=== PATIENT | male | born 1950 | race Caucasian/White ===

== ENCOUNTER 2018-06-07 16:03 | Inpatient (IN) | payer MEDICARE, MEDICAID ==
[~2018-06-07] VITALS: Ht 177.8 cm; Wt 69.8 kg
[2018-06-07] MEDS ORDERED: SODIUM CHLORIDE 0.9% 1,000 ML IV ONE (16:32)
[2018-06-07 17:23] LABS: Albumin 2.9 g/dL (3.4-5.0); BUN/Creatinine Ratio 36.8; Potassium 4.1 mmol/L (3.5-5.1)
[2018-06-07 17:24] LABS: INR 0.98 (0.9-1.15); Partial Thromboplastin Time 23.6 sec (23.78-33.04); Prothrombin Time 10.5 sec (9.27-12.13)
[2018-06-07 17:28] LABS: Bilirubin, Total 0.9 mg/dL (0.2-1.0); Hematocrit 39.6 % (41.0-53.0); Hemoglobin 13.8 g/dL (13.5-17.5); Mean Corpuscular Hemoglobin 32.6 pg (28.0-32.0); Mean Corpuscular Hgb Conc. 34.7 g/dL (32.0-36.0); Mean Corpuscular Volume 93.8 fL (80.0-100.0); Platelet Count (auto) 189 10^3/uL (140-450); Red Blood Cells 4.22 10^6/uL (4.5-5.90); Red Cell Distribution Width 14.6 % (11.8-14.3); Total Protein 5.9 g/dL (6.4-8.2); White Blood Cell 17.7 10^3/uL (4.4-10.8)
[2018-06-07 17:36] LABS: Basophils % (manual) 0 (0.0-2.0); Blast Cells 0; Eosinophils % (manual) 0 (0-7); Metamyelocytes % 0; Myelocytes % 0; Promyelocytes % 0; Reactive Lymphocytes 0
[2018-06-07] MEDS ORDERED: FUROSEMIDE 20 MG/2 ML VIAL IV ONE (18:00)
[2018-06-07] MEDS ORDERED: ASPirin 81 mg TAB PO ONE (18:00)
[2018-06-07] MEDS ORDERED: ENOXAPARIN SOD 80 MG/0.8ML SYRINGE SC ONE (18:00)
[2018-06-07 19:02] LABS: Band Neutrophils % (manual) 4; Lymphocytes % (manual) 1 (10.0-50.0); Monocytes % (manual) 5 (0-12)
[2018-06-07] MEDS ORDERED: NITROGLYCERIN 0.4 MG SL TAB SL PRN (19:15)
[2018-06-07] MEDS ORDERED: HYDROcodone-ACET 5/325MG TAB PO PRN (19:15)
[2018-06-07] MEDS ORDERED: MORPHINE SULF INJ 2 MG/ML SYRINGE 1ML IV PRN ×2 (19:15)
[2018-06-07] MEDS ORDERED: cloNIDine HCL 0.1 MG TAB PO PRN (19:15)
[2018-06-07] MEDS ORDERED: DOCUSATE SOD 100 MG CAP PO PRN (19:15)
[2018-06-07] MEDS ORDERED: ACETAMINOPHEN 325 MG TAB PO PRN (19:15)
[2018-06-07] MEDS ORDERED: ONDANSETRON HCL 4 MG/2 ML VIAL IV PRN (19:15)
[2018-06-07 19:16] VITALS: BP 118/49
[2018-06-07 20:51] LABS: Urine Bacteria FEW /hpf (None Seen); Urine Blood Negative /uL (Negative); Urine Hyaline Cast FEW /lpf (0 - 2); Urine Specific Gravity 1.009 (1.001-1.035); Urine WBC <1 /hpf (0 - 3)
[2018-06-07] MEDS: BUDESONIDE (INHALATION) 0.5 MG/2 ML NEB NEB SCH (21:39)
[2018-06-07 22:00] VITALS: BP_SYST 105; BP_DIAS 62; BP_DIAS 70
[2018-06-07] MEDS: SODIUM CHLOR 0.9% PF (SALINE LOCK) 10ML VIAL/SYR IV SCH (22:00)
[2018-06-07] MEDS: FAMOTIDINE 20 MG TAB PO SCH (22:00)
[2018-06-07] MEDS: ATORVASTATIN 20 MG TAB PO SCH (22:00)
[2018-06-08] MEDS: ALBUTEROL SULF 2.5 MG/0.5ML(0.5%) NEB SOLN NEB SCH ×4 (00:32→18:34)
[2018-06-08] MEDS: IPRATROPIUM BROM 0.5 MG/2.5ML INH SOL NEB SCH ×4 (00:32→18:34)
[2018-06-08 05:17] VITALS: BP 115/76
[2018-06-08] MEDS: BUDESONIDE (INHALATION) 0.5 MG/2 ML NEB NEB SCH ×2 (05:46→18:34)
[2018-06-08 05:54] LABS: Hematocrit 38.4 % (41.0-53.0); Mean Corpuscular Hemoglobin 31.8 pg (28.0-32.0); Mean Corpuscular Hgb Conc. 33.8 g/dL (32.0-36.0); Mean Corpuscular Volume 93.8 fL (80.0-100.0); Platelet Count (auto) 171 10^3/uL (140-450); Red Blood Cells 4.09 10^6/uL (4.5-5.90); Red Cell Distribution Width 14.7 % (11.8-14.3)
[2018-06-08] MEDS: SODIUM CHLOR 0.9% PF (SALINE LOCK) 10ML VIAL/SYR IV SCH ×3 (05:56→22:19)
[2018-06-08 06:03] LABS: Basophils % (manual) 0 (0.0-2.0); Blast Cells 0; Eosinophils % (manual) 0 (0-7); Myelocytes % 0; Promyelocytes % 0; Reactive Lymphocytes 0
[2018-06-08 06:04] LABS: Potassium 3.6 mmol/L (3.5-5.1)
[2018-06-08 06:10] LABS: Albumin 2.5 g/dL (3.4-5.0); BUN/Creatinine Ratio 36.7; Bilirubin, Total 0.5 mg/dL (0.2-1.0); Calcium 8.3 mg/dL (8.5-10.1); Total Protein 5.2 g/dL (6.4-8.2)
[2018-06-08 06:56] LABS: Band Neutrophils % (manual) 7; Lymphocytes % (manual) 3 (10.0-50.0); Metamyelocytes % 1; Monocytes % (manual) 6 (0-12)
[2018-06-08 08:00] VITALS: BP 125/78
[2018-06-08] MEDS: Ensure Enlive Strawberry 8oz Bottle PO SCH ×3 (08:00→18:04)
[2018-06-08 08:51] VITALS: BP 125/78
[2018-06-08] MEDS: amLODIPine BESYLATE 5 MG TAB PO SCH (10:39)
[2018-06-08] MEDS: FINASTERIDE 5 MG TAB PO SCH (10:39)
[2018-06-08] MEDS: MULTIPLE VITAMIN TAB PO SCH (10:39)
[2018-06-08] MEDS: predniSONE 20 MG TAB PO SCH (10:40)
[2018-06-08] MEDS: POTASSIUM CHL 10 Meq TABLET PO SCH (10:40)
[2018-06-08] MEDS: FAMOTIDINE 20 MG TAB PO SCH ×2 (10:40→21:48)
[2018-06-08] MEDS: FUROSEMIDE 40 MG TAB PO SCH (10:40)
[2018-06-08] MEDS: ASPirin-EC 81 mg tab PO SCH (10:40)
[2018-06-08] MEDS: ENOXAPARIN SOD 40 MG/0.4 ML SYRINGE SC SCH (10:40)
[2018-06-08 12:46] VITALS: BP 111/65
[2018-06-08] MEDS ORDERED: IOHEXOL 350 MG/ML 100ML IJ ONE (13:49)
[2018-06-08] MEDS ORDERED: LORazepam 2MG/ML-1ML VIAL IV PRN (17:00)
[2018-06-08 17:07] VITALS: BP 111/70
[2018-06-08] MEDS: TAMSULOSIN HYDROCHLORIDE 0.4 MG CAP PO SCH (17:33)
[2018-06-08] MEDS: ATORVASTATIN 20 MG TAB PO SCH (21:48)
[2018-06-08 22:00] VITALS: BP 118/67
[2018-06-09] MEDS: IPRATROPIUM BROM 0.5 MG/2.5ML INH SOL NEB SCH ×4 (00:09→19:22)
[2018-06-09] MEDS: ALBUTEROL SULF 2.5 MG/0.5ML(0.5%) NEB SOLN NEB SCH ×4 (00:09→19:22)
[2018-06-09 05:00] VITALS: BP 98/71
[2018-06-09] MEDS: BUDESONIDE (INHALATION) 0.5 MG/2 ML NEB NEB SCH ×2 (05:31→19:23)
[2018-06-09] MEDS: SODIUM CHLOR 0.9% PF (SALINE LOCK) 10ML VIAL/SYR IV SCH ×3 (06:00→23:22)
[2018-06-09 08:00] VITALS: BP 114/83
[2018-06-09] MEDS: Ensure Enlive Strawberry 8oz Bottle PO SCH ×3 (08:18→18:24)
[2018-06-09 08:36] VITALS: BP 114/83
[2018-06-09] MEDS: POTASSIUM CHL 10 Meq TABLET PO SCH (09:02)
[2018-06-09] MEDS: amLODIPine BESYLATE 5 MG TAB PO SCH (09:04)
[2018-06-09] MEDS: FAMOTIDINE 20 MG TAB PO SCH ×2 (09:05→21:30)
[2018-06-09] MEDS: FINASTERIDE 5 MG TAB PO SCH (09:05)
[2018-06-09] MEDS: MULTIPLE VITAMIN TAB PO SCH (09:05)
[2018-06-09] MEDS: ASPirin-EC 81 mg tab PO SCH (09:05)
[2018-06-09] MEDS: FUROSEMIDE 40 MG TAB PO SCH (09:05)
[2018-06-09] MEDS: predniSONE 20 MG TAB PO SCH (09:06)
[2018-06-09] MEDS: ENOXAPARIN SOD 40 MG/0.4 ML SYRINGE SC SCH (09:06)
[2018-06-09 12:30] VITALS: BP 101/75
[2018-06-09 16:43] VITALS: BP 127/72
[2018-06-09] MEDS: TAMSULOSIN HYDROCHLORIDE 0.4 MG CAP PO SCH (17:20)
[2018-06-09 21:30] VITALS: BP 116/77
[2018-06-09] MEDS: ATORVASTATIN 20 MG TAB PO SCH (21:30)
[2018-06-10] VITALS (8 sets, daily range): BP systolic 91–122; BP diastolic 64–78
[2018-06-10] MEDS: IPRATROPIUM BROM 0.5 MG/2.5ML INH SOL NEB SCH ×4 (00:11→18:23)
[2018-06-10] MEDS: ALBUTEROL SULF 2.5 MG/0.5ML(0.5%) NEB SOLN NEB SCH ×4 (00:11→18:23)
[2018-06-10] MEDS: SODIUM CHLOR 0.9% PF (SALINE LOCK) 10ML VIAL/SYR IV SCH ×3 (06:37→21:26)
[2018-06-10] MEDS: BUDESONIDE (INHALATION) 0.5 MG/2 ML NEB NEB SCH ×2 (07:00→18:27)
[2018-06-10] MEDS: Ensure Enlive Strawberry 8oz Bottle PO SCH ×3 (08:00→17:40)
[2018-06-10] MEDS: amLODIPine BESYLATE 5 MG TAB PO SCH (09:10)
[2018-06-10] MEDS: ASPirin-EC 81 mg tab PO SCH (09:10)
[2018-06-10] MEDS: MULTIPLE VITAMIN TAB PO SCH (09:11)
[2018-06-10] MEDS: predniSONE 20 MG TAB PO SCH (09:11)
[2018-06-10] MEDS: POTASSIUM CHL 10 Meq TABLET PO SCH (09:11)
[2018-06-10] MEDS: FINASTERIDE 5 MG TAB PO SCH (09:11)
[2018-06-10] MEDS: FUROSEMIDE 40 MG TAB PO SCH (09:11)
[2018-06-10] MEDS: ENOXAPARIN SOD 40 MG/0.4 ML SYRINGE SC SCH (09:17)
[2018-06-10] MEDS: FAMOTIDINE 20 MG TAB PO SCH ×2 (09:17→21:24)
[2018-06-10] MEDS ORDERED: LIDOCAINE 2%HCL (LOCAL ANESTH.) INJ 10ml MDV ONE (12:49)
[2018-06-10] MEDS ORDERED: IOHEXOL 350 MG/ML 100ML IJ ONE (12:49)
[2018-06-10] MEDS ORDERED: ANGIOMAX 250 MG VIAL IV ONE (14:01)
[2018-06-10] MEDS ORDERED: MIDAZOLAM HCL 1MG/1ML-2 ML VIAL ONE (14:01)
[2018-06-10] MEDS ORDERED: fentaNYL CITRATE 100 MCG/2 ML VL ONE (14:01)
[2018-06-10] MEDS ORDERED: SODIUM CHL 0.9% 0 ML ONE (14:02)
[2018-06-10] MEDS: TAMSULOSIN HYDROCHLORIDE 0.4 MG CAP PO SCH (17:40)
[2018-06-10] MEDS: ATORVASTATIN 20 MG TAB PO SCH (21:25)
[2018-06-11] VITALS (8 sets, daily range): BP systolic 87–112; BP diastolic 59–76
[2018-06-11] MEDS: ALBUTEROL SULF 2.5 MG/0.5ML(0.5%) NEB SOLN NEB SCH ×4 (01:09→19:57)
[2018-06-11] MEDS: IPRATROPIUM BROM 0.5 MG/2.5ML INH SOL NEB SCH ×4 (01:09→19:57)
[2018-06-11] MEDS: SODIUM CHLOR 0.9% PF (SALINE LOCK) 10ML VIAL/SYR IV SCH ×3 (06:53→23:11)
[2018-06-11] MEDS: BUDESONIDE (INHALATION) 0.5 MG/2 ML NEB NEB SCH ×2 (07:00→19:57)
[2018-06-11] MEDS: Ensure Enlive Strawberry 8oz Bottle PO SCH ×3 (08:00→17:44)
[2018-06-11] MEDS: FAMOTIDINE 20 MG TAB PO SCH ×2 (09:32→23:11)
[2018-06-11] MEDS: ENOXAPARIN SOD 40 MG/0.4 ML SYRINGE SC SCH (09:32)
[2018-06-11] MEDS: MULTIPLE VITAMIN TAB PO SCH (09:33)
[2018-06-11] MEDS: FUROSEMIDE 40 MG TAB PO SCH (09:33)
[2018-06-11] MEDS: POTASSIUM CHL 10 Meq TABLET PO SCH (09:33)
[2018-06-11] MEDS: FINASTERIDE 5 MG TAB PO SCH (09:33)
[2018-06-11] MEDS: ASPirin-EC 81 mg tab PO SCH (09:33)
[2018-06-11] MEDS: amLODIPine BESYLATE 5 MG TAB PO SCH (09:34)
[2018-06-11] MEDS: predniSONE 20 MG TAB PO SCH (09:34)
[2018-06-11] MEDS: TAMSULOSIN HYDROCHLORIDE 0.4 MG CAP PO SCH (17:44)
[2018-06-11] MEDS: ATORVASTATIN 20 MG TAB PO SCH (22:00)
[2018-06-12] MEDS: IPRATROPIUM BROM 0.5 MG/2.5ML INH SOL NEB SCH ×4 (00:36→18:33)
[2018-06-12] MEDS: ALBUTEROL SULF 2.5 MG/0.5ML(0.5%) NEB SOLN NEB SCH ×4 (00:36→18:33)
[2018-06-12 05:00] VITALS: BP 114/82
[2018-06-12] MEDS: SODIUM CHLOR 0.9% PF (SALINE LOCK) 10ML VIAL/SYR IV SCH ×2 (06:19→14:38)
[2018-06-12] MEDS: BUDESONIDE (INHALATION) 0.5 MG/2 ML NEB NEB SCH ×2 (07:00→18:34)
[2018-06-12 09:00] VITALS: BP 115/74
[2018-06-12] MEDS: Ensure Enlive Strawberry 8oz Bottle PO SCH ×3 (09:02→19:03)
[2018-06-12] MEDS: ENOXAPARIN SOD 40 MG/0.4 ML SYRINGE SC SCH (09:36)
[2018-06-12] MEDS: FINASTERIDE 5 MG TAB PO SCH (09:36)
[2018-06-12] MEDS: ASPirin-EC 81 mg tab PO SCH (09:36)
[2018-06-12] MEDS: POTASSIUM CHL 10 Meq TABLET PO SCH (09:37)
[2018-06-12] MEDS: FAMOTIDINE 20 MG TAB PO SCH (09:37)
[2018-06-12] MEDS: MULTIPLE VITAMIN TAB PO SCH (09:37)
[2018-06-12] MEDS: FUROSEMIDE 40 MG TAB PO SCH (09:37)
[2018-06-12] MEDS: predniSONE 20 MG TAB PO SCH (09:38)
[2018-06-12] MEDS: amLODIPine BESYLATE 5 MG TAB PO SCH (09:38)
[2018-06-12 13:00] VITALS: BP 102/65
[2018-06-12 17:06] VITALS: BP 117/76
[2018-06-12] MEDS: TAMSULOSIN HYDROCHLORIDE 0.4 MG CAP PO SCH (18:00)
== END 2018-06-12 21:20 | disposition home health service (06) | DRG 286 ==
LOC: ER 16:03 → EDBD 16:03 → TELE 16:04 → TELE-EAST 20:40
PROVIDERS: ADMIT Internal Medicine; ATTEND Internal Medicine Pulmonary Disease
PROC: 4A023N8 Measurement of Cardiac Sampling and Pressure, Bilateral, Percutaneous Approach (ICD-10-PCS; principal; 2018-06-10)
PROC: B2151ZZ Fluoroscopy of Left Heart using Low Osmolar Contrast (ICD-10-PCS; 2018-06-10)
PROC: B2111ZZ Fluoroscopy of Multiple Coronary Arteries using Low Osmolar Contrast (ICD-10-PCS; 2018-06-10)
DX: I13.0 Hypertensive heart and chronic kidney disease with heart failure and stage 1 through stage 4 chronic kidney disease, or unspecified chronic kidney disease (principal); I50.43 Acute on chronic combined systolic (congestive) and diastolic (congestive) heart failure; G93.40 Encephalopathy, unspecified; J96.20 Acute and chronic respiratory failure, unspecified whether with hypoxia or hypercapnia; E44.0 Moderate protein-calorie malnutrition; R55 Syncope and collapse; S09.90XA Unspecified injury of head, initial encounter; J44.9 Chronic obstructive pulmonary disease, unspecified; E83.51 Hypocalcemia; I27.20 Pulmonary hypertension, unspecified; N18.2 Chronic kidney disease, stage 2 (mild); D63.8 Anemia in other chronic diseases classified elsewhere; I67.2 Cerebral atherosclerosis; Y93.01 Activity, walking, marching and hiking; F15.10 Other stimulant abuse, uncomplicated; N40.0 Benign prostatic hyperplasia without lower urinary tract symptoms; S01.21XA Laceration without foreign body of nose, initial encounter; W18.39XA Other fall on same level, initial encounter; I07.1 Rheumatic tricuspid insufficiency; Z80.0 Family history of malignant neoplasm of digestive organs; Z80.42 Family history of malignant neoplasm of prostate; Z87.891 Personal history of nicotine dependence; Z86.19 Personal history of other infectious and parasitic diseases; Y92.89 Other specified places as the place of occurrence of the external cause; Y99.8 Other external cause status
CPT/HCPCS: 36415; 36600; 70450; 70551; 71045; 71250; 71275; 78582; 80053; 81001; 82805; 82962; 83880; 84484; 85007; 85027; 85610; 85730; 87081; 87086; 93005; 93306; 93460; 93886; 94640; 95819; 96372; 96374; 97163; 99152; A6257; C1751; J2001; J2250

== ENCOUNTER 2018-09-01 19:08 | Inpatient (IN) | payer MEDICARE, MEDICAID ==
[~2018-09-01] VITALS: Ht 177.8 cm; Wt 87.2 kg
[2018-09-01 20:36] LABS: Basophils # (auto) 0.1 uL; Basophils % (auto) 0.9 % (0.0-2.0); Eosinophils # (auto) 0 uL; Eosinophils % (auto) 0.1 % (0.0-7.0); Hematocrit 45.3 % (41.0-53.0); Hemoglobin 15.4 g/dL (13.5-17.5); Lymphocytes % (auto) 10.2 % (10.0-50.0); Mean Corpuscular Hemoglobin 31.2 pg (28.0-32.0); Mean Corpuscular Volume 91.9 fL (80.0-100.0); Monocytes # (auto) 0.9 uL; Neutrophils # (auto) 7.3 uL; Neutrophils % (auto) 78.8 % (37.0-80.0); Nucleated Red Blood Cells % 0.1 %; Platelet Count (auto) 202 10^3/uL (140-450); Red Blood Cells 4.93 10^6/uL (4.5-5.90); Red Cell Distribution Width 13.7 % (11.8-14.3); White Blood Cell 9.3 10^3/uL (4.4-10.8)
[2018-09-01 20:53] LABS: Potassium 3.8 mmol/L (3.5-5.1)
[2018-09-01 20:56] LABS: Albumin 3.9 g/dL (3.4-5.0); BUN/Creatinine Ratio 14.8
[2018-09-01 21:01] LABS: Bilirubin, Total 1.3 mg/dL (0.2-1.0); Total Protein 7.8 g/dL (6.4-8.2)
[2018-09-01] MEDS ORDERED: MORPHINE SULFATE 4 MG/ML SYR/VIAL IV ONE (23:45)
[2018-09-01] MEDS ORDERED: ONDANSETRON HCL 4 MG/2 ML VIAL IV ONE (23:45)
[2018-09-02] VITALS (9 sets, daily range): BP systolic 95–128; BP diastolic 40–83
[2018-09-02 01:27] LABS: Urine Bacteria NONE SEEN /hpf (None Seen); Urine Blood Negative /uL (Negative); Urine Specific Gravity 1.015 (1.001-1.035); Urine WBC 1 /hpf (0 - 3)
[2018-09-02] MEDS ORDERED: methylPREDNISolone SOD SUCC 125 MG/2 ML VL IV ONE (02:15)
[2018-09-02] MEDS ORDERED: ONDANSETRON HCL 4 MG/2 ML VIAL IV PRN (03:45)
[2018-09-02] MEDS ORDERED: ACETAMINOPHEN 325 MG TAB PO PRN (03:45)
[2018-09-02] MEDS ORDERED: NITROGLYCERIN 0.4 MG SL TAB SL PRN (03:45)
[2018-09-02] MEDS ORDERED: ALBUTEROL SULF 2.5 MG/0.5ML(0.5%) NEB SOLN NEB PRN (03:45)
[2018-09-02] MEDS ORDERED: MORPHINE SULFATE 4 MG/ML SYR/VIAL IV PRN (03:45)
[2018-09-02] MEDS: GABAPENTIN 300 MG CAP PO SCH ×3 (06:27→22:23)
[2018-09-02] MEDS: POTASSIUM CHL 20 Meq TABLET PO SCH (10:31)
[2018-09-02] MEDS: HYDROcodone-ACET 5/325MG TAB PO PRN ×2 (10:31→22:24)
[2018-09-02] MEDS: FUROSEMIDE 40 MG TAB PO SCH (10:32)
[2018-09-02] MEDS: FAMOTIDINE 20 MG TAB PO SCH ×2 (10:32→22:23)
[2018-09-02] MEDS: SILDENAFIL CITRATE 20 MG TAB PO SCH ×3 (10:32→20:00)
[2018-09-02] MEDS ORDERED: PRE5T PO (10:50)
[2018-09-02] MEDS ORDERED: FURO40TA4 PO (10:50)
[2018-09-02] MEDS ORDERED: SILD30SU PO (10:50)
[2018-09-02] MEDS ORDERED: AMLO5TAB13 PO (10:50)
[2018-09-02] MEDS ORDERED: MOME200A INH (10:50)
[2018-09-02] MEDS ORDERED: TAM04C PO (10:50)
[2018-09-02] MEDS ORDERED: ASPI81TA27 PO (10:50)
[2018-09-02] MEDS ORDERED: IPRIH INH (10:50)
[2018-09-02] MEDS ORDERED: POTA20TA53 PO (10:50)
[2018-09-02] MEDS ORDERED: LEVA1NEB5 NEB (10:50)
[2018-09-02] MEDS ORDERED: ALBU2TAB4 PO (10:50)
[2018-09-02] MEDS ORDERED: FINA5TAB4 PO (10:50)
[2018-09-03] VITALS (7 sets, daily range): BP systolic 100–110; BP diastolic 48–84
[2018-09-03 05:51] LABS: Basophils # (auto) 0 uL; Basophils % (auto) 0.1 % (0.0-2.0); Eosinophils # (auto) 0 uL; Hematocrit 39.2 % (41.0-53.0); Hemoglobin 13.4 g/dL (13.5-17.5); Lymphocytes # (auto) 0.4 uL; Mean Corpuscular Hemoglobin 31.6 pg (28.0-32.0); Mean Corpuscular Hgb Conc. 34.2 g/dL (32.0-36.0); Mean Corpuscular Volume 92.2 fL (80.0-100.0); Monocytes # (auto) 0.6 uL; Monocytes % (auto) 5.2 % (0.0-12.0); Neutrophils # (auto) 9.8 uL; Neutrophils % (auto) 90.7 % (37.0-80.0); Nucleated Red Blood Cells % 0.1 %; Platelet Count (auto) 183 10^3/uL (140-450); Red Blood Cells 4.26 10^6/uL (4.5-5.90); Red Cell Distribution Width 13.7 % (11.8-14.3); White Blood Cell 10.8 10^3/uL (4.4-10.8)
[2018-09-03] MEDS: HYDROcodone-ACET 5/325MG TAB PO PRN ×2 (06:16→20:00)
[2018-09-03] MEDS: GABAPENTIN 300 MG CAP PO SCH ×3 (06:16→21:16)
[2018-09-03 06:29] LABS: Albumin 3.5 g/dL (3.4-5.0); Calcium 8.8 mg/dL (8.5-10.1)
[2018-09-03 06:32] LABS: BUN/Creatinine Ratio 23.2
[2018-09-03 06:34] LABS: Bilirubin, Total 0.8 mg/dL (0.2-1.0); Total Protein 7.1 g/dL (6.4-8.2)
[2018-09-03] MEDS: SILDENAFIL CITRATE 20 MG TAB PO SCH ×3 (08:21→19:59)
[2018-09-03] MEDS: POTASSIUM CHL 20 Meq TABLET PO SCH (10:00)
[2018-09-03] MEDS: FUROSEMIDE 40 MG TAB PO SCH (10:13)
[2018-09-03] MEDS: FAMOTIDINE 20 MG TAB PO SCH ×2 (10:14→21:16)
[2018-09-04] VITALS (7 sets, daily range): BP systolic 93–129; BP diastolic 49–92
[2018-09-04] MEDS: IPRATROPIUM BROM 0.5 MG/2.5ML INH SOL NEB SCH ×4 (00:05→18:36)
[2018-09-04] MEDS: GABAPENTIN 300 MG CAP PO SCH ×3 (05:59→21:52)
[2018-09-04] MEDS ORDERED: methylPREDNISolone SOD SUCC 125 MG/2 ML VL IV ONE (08:15)
[2018-09-04] MEDS: SILDENAFIL CITRATE 20 MG TAB PO SCH ×3 (08:24→20:41)
[2018-09-04] MEDS: FINASTERIDE 5 MG TAB PO SCH (09:29)
[2018-09-04] MEDS: FAMOTIDINE 20 MG TAB PO SCH ×2 (09:29→21:52)
[2018-09-04] MEDS: FUROSEMIDE 40 MG TAB PO SCH (09:30)
[2018-09-04] MEDS: HYDROcodone-ACET 5/325MG TAB PO PRN ×2 (09:30→20:42)
[2018-09-04] MEDS: ASPirin 81 mg TAB PO SCH (09:32)
[2018-09-04] MEDS: POTASSIUM CHL 20 Meq TABLET PO SCH (11:41)
[2018-09-04] MEDS: LEVALBUTEROL HCL 1.25 MG/3 ML NEB NEB SCH ×2 (11:48→18:36)
[2018-09-04 12:32] LABS: BUN/Creatinine Ratio 35.8; Calcium 8.9 mg/dL (8.5-10.1); Potassium 4.4 mmol/L (3.5-5.1)
[2018-09-04] MEDS: TAMSULOSIN HYDROCHLORIDE 0.4 MG CAP PO SCH (18:06)
[2018-09-04] MEDS ORDERED: LEVALBUTEROL HCL 1.25 MG/3 ML NEB ONE (18:11)
[2018-09-05] VITALS: BP 100/66
[2018-09-05] MEDS: LEVALBUTEROL HCL 1.25 MG/3 ML NEB NEB SCH ×4 (00:05→18:03)
[2018-09-05 04:00] VITALS: BP 100/66
[2018-09-05] MEDS: GABAPENTIN 300 MG CAP PO SCH ×3 (06:17→21:25)
[2018-09-05] MEDS: IPRATROPIUM BROM 0.5 MG/2.5ML INH SOL NEB SCH ×5 (06:18→22:25)
[2018-09-05 08:00] VITALS: BP 123/75
[2018-09-05] MEDS: SILDENAFIL CITRATE 20 MG TAB PO SCH ×3 (09:10→21:24)
[2018-09-05] MEDS: methylPREDNISolone SOD SUCC 125 MG/2 ML VL IV SCH ×2 (09:10→21:24)
[2018-09-05] MEDS: FAMOTIDINE 20 MG TAB PO SCH ×2 (09:10→21:25)
[2018-09-05] MEDS: FUROSEMIDE 40 MG TAB PO SCH (09:11)
[2018-09-05] MEDS: FINASTERIDE 5 MG TAB PO SCH (09:12)
[2018-09-05] MEDS: ASPirin 81 mg TAB PO SCH (09:12)
[2018-09-05] MEDS: HYDROcodone-ACET 5/325MG TAB PO PRN ×3 (09:16→18:31)
[2018-09-05] MEDS: POTASSIUM CHL 20 Meq TABLET PO SCH (10:00)
[2018-09-05] MEDS ORDERED: methylPREDNISolone SOD SUCC 125 MG/2 ML VL IV SCH (10:00)
[2018-09-05 10:10] LABS: Basophils # (auto) 0 uL; Basophils % (auto) 0.1 % (0.0-2.0); Eosinophils # (auto) 0 uL; Hematocrit 39.2 % (41.0-53.0); Hemoglobin 13.6 g/dL (13.5-17.5); Lymphocytes # (auto) 0.4 uL; Lymphocytes % (auto) 3.5 % (10.0-50.0); Mean Corpuscular Hemoglobin 31.6 pg (28.0-32.0); Mean Corpuscular Hgb Conc. 34.7 g/dL (32.0-36.0); Mean Corpuscular Volume 91.3 fL (80.0-100.0); Monocytes # (auto) 0.8 uL; Neutrophils # (auto) 8.9 uL; Neutrophils % (auto) 88.4 % (37.0-80.0); Nucleated Red Blood Cells % 0.3 %; Platelet Count (auto) 176 10^3/uL (140-450); Red Blood Cells 4.29 10^6/uL (4.5-5.90); Red Cell Distribution Width 13.8 % (11.8-14.3)
[2018-09-05 10:21] LABS: BUN/Creatinine Ratio 31.2; Calcium 9.2 mg/dL (8.5-10.1); Potassium 4.1 mmol/L (3.5-5.1)
[2018-09-05 12:00] VITALS: BP 112/81
[2018-09-05 15:57] VITALS: BP 128/67
[2018-09-05] MEDS: TAMSULOSIN HYDROCHLORIDE 0.4 MG CAP PO SCH (18:28)
[2018-09-05 20:00] VITALS: BP 124/76
[2018-09-05] MEDS ORDERED: HYDR-4683 PO (20:44)
[2018-09-05] MEDS ORDERED: GABA300C PO (20:44)
[2018-09-06 00:56] VITALS: BP 114/76
[2018-09-06] MEDS: IPRATROPIUM BROM 0.5 MG/2.5ML INH SOL NEB SCH ×5 (01:43→18:43)
[2018-09-06] MEDS: LEVALBUTEROL HCL 1.25 MG/3 ML NEB NEB SCH ×4 (01:43→18:54)
[2018-09-06 04:48] VITALS: BP 94/67
[2018-09-06] MEDS: GABAPENTIN 300 MG CAP PO SCH ×3 (05:57→22:03)
[2018-09-06 08:00] VITALS: BP 115/53
[2018-09-06 08:19] LABS: Basophils # (auto) 0 uL; Basophils % (auto) 0.1 % (0.0-2.0); Eosinophils # (auto) 0 uL; Hematocrit 40.6 % (41.0-53.0); Hemoglobin 13.7 g/dL (13.5-17.5); Lymphocytes # (auto) 0.3 uL; Lymphocytes % (auto) 3.3 % (10.0-50.0); Mean Corpuscular Hemoglobin 30.9 pg (28.0-32.0); Mean Corpuscular Hgb Conc. 33.8 g/dL (32.0-36.0); Mean Corpuscular Volume 91.4 fL (80.0-100.0); Monocytes # (auto) 0.4 uL; Monocytes % (auto) 4.5 % (0.0-12.0); Neutrophils # (auto) 8.7 uL; Neutrophils % (auto) 92.1 % (37.0-80.0); Nucleated Red Blood Cells % 0.3 %; Platelet Count (auto) 186 10^3/uL (140-450); Red Blood Cells 4.44 10^6/uL (4.5-5.90); Red Cell Distribution Width 13.6 % (11.8-14.3); White Blood Cell 9.5 10^3/uL (4.4-10.8)
[2018-09-06 08:37] LABS: BUN/Creatinine Ratio 31.6; Calcium 9.4 mg/dL (8.5-10.1); Potassium 4.3 mmol/L (3.5-5.1)
[2018-09-06] MEDS: SILDENAFIL CITRATE 20 MG TAB PO SCH ×3 (08:41→20:00)
[2018-09-06] MEDS: HYDROcodone-ACET 5/325MG TAB PO PRN ×3 (08:42→22:20)
[2018-09-06] MEDS ORDERED: LORazepam 2MG/ML-1ML VIAL IV PRN (09:15)
[2018-09-06] MEDS: methylPREDNISolone SOD SUCC 125 MG/2 ML VL IV SCH ×2 (10:04→22:03)
[2018-09-06] MEDS: FINASTERIDE 5 MG TAB PO SCH (10:05)
[2018-09-06] MEDS: FUROSEMIDE 40 MG TAB PO SCH (10:05)
[2018-09-06] MEDS: FAMOTIDINE 20 MG TAB PO SCH ×2 (10:05→22:03)
[2018-09-06] MEDS: ASPirin 81 mg TAB PO SCH (10:06)
[2018-09-06] MEDS: POTASSIUM CHL 20 Meq TABLET PO SCH (10:08)
[2018-09-06 11:55] VITALS: BP 114/79
[2018-09-06] MEDS ORDERED: IOHEXOL 350 MG/ML 100ML IJ ONE (12:23)
[2018-09-06 15:57] VITALS: BP 129/67
[2018-09-06] MEDS ORDERED: MILRINONE 4 MG in SODIUM CHL 0.9% 50 ML IV ONE (16:30)
[2018-09-06] MEDS ORDERED: MILRINONE 1 MG/ML 20ML VIAL INJ IV ONE (16:30)
[2018-09-06] MEDS: TAMSULOSIN HYDROCHLORIDE 0.4 MG CAP PO SCH (18:00)
[2018-09-06] MEDS ORDERED: DILTIAZEM HCL 25 MG/5 ML VIAL IV ONE (18:30)
[2018-09-06 19:56] VITALS: BP 127/88
[2018-09-07] VITALS (48 sets, daily range): BP systolic 3–277; BP diastolic 0–275
[2018-09-07] MEDS: IPRATROPIUM BROM 0.5 MG/2.5ML INH SOL NEB SCH ×4 (01:21→19:11)
[2018-09-07] MEDS: LEVALBUTEROL HCL 1.25 MG/3 ML NEB NEB SCH ×4 (01:21→19:12)
[2018-09-07] MEDS: GABAPENTIN 300 MG CAP PO SCH ×3 (06:00→22:44)
[2018-09-07] MEDS: MILRINONE 20MG/100ML 100 ML IV SCH ×2 (06:20→20:41)
[2018-09-07 08:14] LABS: INR 1.2 (0.9-1.15); Partial Thromboplastin Time 23.9 sec (23.78-33.04); Prothrombin Time 12.7 sec (9.27-12.13)
[2018-09-07] MEDS: SILDENAFIL CITRATE 20 MG TAB PO SCH ×3 (08:29→20:58)
[2018-09-07] MEDS: FAMOTIDINE 20 MG TAB PO SCH ×2 (09:07→22:44)
[2018-09-07] MEDS: POTASSIUM CHL 20 Meq TABLET PO SCH (09:07)
[2018-09-07] MEDS: HYDROcodone-ACET 5/325MG TAB PO PRN ×2 (09:08→20:41)
[2018-09-07] MEDS: FUROSEMIDE 40 MG TAB PO SCH (09:08)
[2018-09-07] MEDS: FINASTERIDE 5 MG TAB PO SCH (09:08)
[2018-09-07] MEDS: ASPirin 81 mg TAB PO SCH (09:09)
[2018-09-07] MEDS: methylPREDNISolone SOD SUCC 125 MG/2 ML VL IV SCH ×2 (09:09→22:43)
[2018-09-07] MEDS: DOCUSATE SOD 100 MG CAP PO SCH ×2 (10:12→22:44)
[2018-09-07] MEDS: TAMSULOSIN HYDROCHLORIDE 0.4 MG CAP PO SCH (17:31)
[2018-09-07] MEDS: TEMAZEPAM 15 MG CAP PO PRN (22:44)
[2018-09-08] VITALS (95 sets, daily range): BP systolic 54–143; BP diastolic 37–115
[2018-09-08] MEDS: IPRATROPIUM BROM 0.5 MG/2.5ML INH SOL NEB SCH ×4 (00:21→19:04)
[2018-09-08] MEDS: LEVALBUTEROL HCL 1.25 MG/3 ML NEB NEB SCH ×4 (00:22→19:08)
[2018-09-08] MEDS ORDERED: LEVALBUTEROL HCL 1.25 MG/3 ML NEB ONE ×2 (06:02→12:39)
[2018-09-08] MEDS: GABAPENTIN 300 MG CAP PO SCH ×3 (06:40→21:50)
[2018-09-08 06:47] LABS: BUN/Creatinine Ratio 28.8; Calcium 9.1 mg/dL (8.5-10.1); Magnesium 2.8 mg/dL (1.6-2.6); Potassium 4.1 mmol/L (3.5-5.1)
[2018-09-08] MEDS: SILDENAFIL CITRATE 20 MG TAB PO SCH ×3 (08:20→19:56)
[2018-09-08] MEDS: MILRINONE 20MG/100ML 100 ML IV SCH ×3 (08:45→15:45)
[2018-09-08 09:03] LABS: Basophils # (auto) 0 uL; Basophils % (auto) 0.1 % (0.0-2.0); Eosinophils # (auto) 0 uL; Hematocrit 38.3 % (41.0-53.0); Hemoglobin 13.1 g/dL (13.5-17.5); Lymphocytes # (auto) 0.1 uL; Lymphocytes % (auto) 1.3 % (10.0-50.0); Mean Corpuscular Hemoglobin 31.2 pg (28.0-32.0); Mean Corpuscular Hgb Conc. 34.2 g/dL (32.0-36.0); Mean Corpuscular Volume 91.3 fL (80.0-100.0); Monocytes # (auto) 0.6 uL; Monocytes % (auto) 5.5 % (0.0-12.0); Neutrophils # (auto) 9.7 uL; Neutrophils % (auto) 93.1 % (37.0-80.0); Nucleated Red Blood Cells % 0.3 %; Platelet Count (auto) 167 10^3/uL (140-450); White Blood Cell 10.4 10^3/uL (4.4-10.8)
[2018-09-08] MEDS: POTASSIUM CHL 20 Meq TABLET PO SCH (09:46)
[2018-09-08] MEDS: ASPirin 81 mg TAB PO SCH (09:46)
[2018-09-08] MEDS: methylPREDNISolone SOD SUCC 125 MG/2 ML VL IV SCH ×2 (09:46→21:50)
[2018-09-08] MEDS: DOCUSATE SOD 100 MG CAP PO SCH ×2 (09:46→21:50)
[2018-09-08] MEDS: HYDROcodone-ACET 5/325MG TAB PO PRN ×3 (09:47→22:49)
[2018-09-08] MEDS: FAMOTIDINE 20 MG TAB PO SCH ×2 (09:47→21:50)
[2018-09-08] MEDS: FUROSEMIDE 40 MG TAB PO SCH (09:47)
[2018-09-08] MEDS: FINASTERIDE 5 MG TAB PO SCH (09:47)
[2018-09-08] MEDS: TAMSULOSIN HYDROCHLORIDE 0.4 MG CAP PO SCH (18:49)
[2018-09-08] MEDS: TEMAZEPAM 15 MG CAP PO PRN (21:50)
[2018-09-09] VITALS (88 sets, daily range): BP systolic 96–165; BP diastolic 41–90
[2018-09-09] MEDS: LEVALBUTEROL HCL 1.25 MG/3 ML NEB NEB SCH ×4 (00:09→18:39)
[2018-09-09] MEDS: IPRATROPIUM BROM 0.5 MG/2.5ML INH SOL NEB SCH ×4 (00:09→18:39)
[2018-09-09] MEDS: MILRINONE 20MG/100ML 100 ML IV SCH ×4 (02:41→23:46)
[2018-09-09 03:08] LABS: Basophils # (auto) 0 uL; Basophils % (auto) 0.2 % (0.0-2.0); Eosinophils # (auto) 0 uL; Eosinophils % (auto) 0.1 % (0.0-7.0); Hematocrit 37.8 % (41.0-53.0); Hemoglobin 12.6 g/dL (13.5-17.5); Lymphocytes # (auto) 0.2 uL; Lymphocytes % (auto) 1.4 % (10.0-50.0); Mean Corpuscular Hemoglobin 30.6 pg (28.0-32.0); Mean Corpuscular Hgb Conc. 33.4 g/dL (32.0-36.0); Mean Corpuscular Volume 91.6 fL (80.0-100.0); Monocytes # (auto) 0.6 uL; Monocytes % (auto) 5.4 % (0.0-12.0); Neutrophils # (auto) 10.2 uL; Neutrophils % (auto) 92.9 % (37.0-80.0); Nucleated Red Blood Cells % 0.3 %; Platelet Count (auto) 143 10^3/uL (140-450); Red Blood Cells 4.12 10^6/uL (4.5-5.90); Red Cell Distribution Width 13.9 % (11.8-14.3)
[2018-09-09 03:23] LABS: Albumin 3.3 g/dL (3.4-5.0); Calcium 8.8 mg/dL (8.5-10.1)
[2018-09-09 03:26] LABS: BUN/Creatinine Ratio 35.5; Bilirubin, Total 0.9 mg/dL (0.2-1.0); Total Protein 6.5 g/dL (6.4-8.2)
[2018-09-09] MEDS: GABAPENTIN 300 MG CAP PO SCH ×3 (05:46→23:30)
[2018-09-09] MEDS ORDERED: LEVALBUTEROL HCL 1.25 MG/3 ML NEB ONE ×2 (05:52→12:25)
[2018-09-09] MEDS: methylPREDNISolone SOD SUCC 125 MG/2 ML VL IV SCH ×2 (09:28→23:31)
[2018-09-09] MEDS: HYDROcodone-ACET 5/325MG TAB PO PRN (09:28)
[2018-09-09] MEDS: POTASSIUM CHL 20 Meq TABLET PO SCH (09:28)
[2018-09-09] MEDS: DOCUSATE SOD 100 MG CAP PO SCH ×2 (09:29→23:31)
[2018-09-09] MEDS: FAMOTIDINE 20 MG TAB PO SCH ×2 (09:29→23:31)
[2018-09-09] MEDS: SILDENAFIL CITRATE 20 MG TAB PO SCH ×3 (09:29→22:10)
[2018-09-09] MEDS: ASPirin 81 mg TAB PO SCH (09:29)
[2018-09-09] MEDS: FINASTERIDE 5 MG TAB PO SCH (09:29)
[2018-09-09] MEDS: FUROSEMIDE 40 MG TAB PO SCH (09:30)
[2018-09-09] MEDS ORDERED: DILTIAZEM HCL 120MG ER CAP PO ONE (14:30)
[2018-09-09] MEDS: HYDROcodone-ACET 10/325MG TAB PO PRN ×2 (14:31→23:46)
[2018-09-09] MEDS: TAMSULOSIN HYDROCHLORIDE 0.4 MG CAP PO SCH (18:00)
[2018-09-10] VITALS (86 sets, daily range): BP systolic 98–153; BP diastolic 40–100
[2018-09-10] MEDS: TEMAZEPAM 15 MG CAP PO PRN
[2018-09-10] MEDS: LEVALBUTEROL HCL 1.25 MG/3 ML NEB NEB SCH ×4 (00:22→18:00)
[2018-09-10] MEDS: IPRATROPIUM BROM 0.5 MG/2.5ML INH SOL NEB SCH ×4 (00:22→18:00)
[2018-09-10 04:15] LABS: Basophils # (auto) 0 uL; Eosinophils # (auto) 0 uL; Hematocrit 38.5 % (41.0-53.0); Hemoglobin 12.9 g/dL (13.5-17.5); Lymphocytes # (auto) 0.2 uL; Lymphocytes % (auto) 1.7 % (10.0-50.0); Mean Corpuscular Hemoglobin 30.5 pg (28.0-32.0); Mean Corpuscular Hgb Conc. 33.5 g/dL (32.0-36.0); Mean Corpuscular Volume 91.1 fL (80.0-100.0); Monocytes # (auto) 0.7 uL; Monocytes % (auto) 6.2 % (0.0-12.0); Neutrophils # (auto) 10.8 uL; Neutrophils % (auto) 92.1 % (37.0-80.0); Nucleated Red Blood Cells % 0.1 %; Platelet Count (auto) 113 10^3/uL (140-450); Red Blood Cells 4.22 10^6/uL (4.5-5.90); White Blood Cell 11.8 10^3/uL (4.4-10.8)
[2018-09-10 04:31] LABS: Potassium 4.3 mmol/L (3.5-5.1)
[2018-09-10 04:33] LABS: BUN/Creatinine Ratio 34.8
[2018-09-10] MEDS: GABAPENTIN 300 MG CAP PO SCH ×3 (06:13→22:40)
[2018-09-10] MEDS: MILRINONE 20MG/100ML 100 ML IV SCH ×2 (06:13→17:09)
[2018-09-10] MEDS: SILDENAFIL CITRATE 20 MG TAB PO SCH ×3 (08:29→20:31)
[2018-09-10] MEDS ORDERED: DILTIAZEM HCL 120MG ER CAP PO SCH (10:00)
[2018-09-10] MEDS ORDERED: ENOXAPARIN SOD 40 MG/0.4 ML SYRINGE SC SCH (10:00)
[2018-09-10] MEDS: methylPREDNISolone SOD SUCC 125 MG/2 ML VL IV SCH ×2 (10:02→22:35)
[2018-09-10] MEDS: POTASSIUM CHL 20 Meq TABLET PO SCH (10:03)
[2018-09-10] MEDS: HYDROcodone-ACET 10/325MG TAB PO PRN ×2 (10:04→20:32)
[2018-09-10] MEDS: DOCUSATE SOD 100 MG CAP PO SCH ×2 (10:04→22:40)
[2018-09-10] MEDS: ASPirin 81 mg TAB PO SCH (10:04)
[2018-09-10] MEDS: FAMOTIDINE 20 MG TAB PO SCH ×2 (10:04→22:40)
[2018-09-10] MEDS: FINASTERIDE 5 MG TAB PO SCH (10:04)
[2018-09-10] MEDS: FUROSEMIDE 40 MG TAB PO SCH (10:04)
[2018-09-10] MEDS: HYDROcodone-ACET 5/325MG TAB PO PRN (13:40)
[2018-09-10] MEDS: TAMSULOSIN HYDROCHLORIDE 0.4 MG CAP PO SCH (18:09)
[2018-09-11] VITALS (12 sets, daily range): BP systolic 114–148; BP diastolic 51–80
[2018-09-11] MEDS: IPRATROPIUM BROM 0.5 MG/2.5ML INH SOL NEB SCH (00:25)
[2018-09-11] MEDS: LEVALBUTEROL HCL 1.25 MG/3 ML NEB NEB SCH (00:25)
[2018-09-11] MEDS: MILRINONE 20MG/100ML 100 ML IV SCH (01:23)
== END 2018-09-11 02:50 | disposition short-term general hospital (02) | DRG 291 ==
LOC: ER 19:09 → TELE 19:10 → DOU IN ICU 09-02 05:19 → ICU WEST 09-07 10:55
PROVIDERS: ADMIT Nurse Practitioner; ATTEND Family Medicine
PROC: 02HP32Z Insertion of Monitoring Device into Pulmonary Trunk, Percutaneous Approach (ICD-10-PCS; principal; 2018-09-07)
PROC: 4A133B3 Monitoring of Arterial Pressure, Pulmonary, Percutaneous Approach (ICD-10-PCS; 2018-09-07)
PROC: 4A1239Z Monitoring of Cardiac Output, Percutaneous Approach (ICD-10-PCS; 2018-09-07)
DX: I50.43 Acute on chronic combined systolic (congestive) and diastolic (congestive) heart failure (principal); J96.21 Acute and chronic respiratory failure with hypoxia; N17.0 Acute kidney failure with tubular necrosis; J44.1 Chronic obstructive pulmonary disease with (acute) exacerbation; I31.3 Pericardial effusion (noninflammatory); J98.11 Atelectasis; I11.0 Hypertensive heart disease with heart failure; I27.20 Pulmonary hypertension, unspecified; M47.9 Spondylosis, unspecified; M19.90 Unspecified osteoarthritis, unspecified site; M50.10 Cervical disc disorder with radiculopathy, unspecified cervical region; S01.81XA Laceration without foreign body of other part of head, initial encounter; W18.30XA Fall on same level, unspecified, initial encounter; S80.01XA Contusion of right knee, initial encounter; Z79.51 Long term (current) use of inhaled steroids; Z85.038 Personal history of other malignant neoplasm of large intestine; Z85.46 Personal history of malignant neoplasm of prostate; Z87.442 Personal history of urinary calculi; Z87.891 Personal history of nicotine dependence; N40.0 Benign prostatic hyperplasia without lower urinary tract symptoms; Z91.19 Patient's noncompliance with other medical treatment and regimen; Z99.81 Dependence on supplemental oxygen; M41.9 Scoliosis, unspecified; D63.8 Anemia in other chronic diseases classified elsewhere
CPT/HCPCS: 36415; 36600; 70450; 71045; 71275; 72125; 73562; 80048; 80053; 81001; 82805; 82962; 83735; 83880; 84484; 85025; 85610; 85730; 87081; 93005; 93971; 94640; 96374; 96375; A6257; G0378; J2405